=== PATIENT | female | born 1945 | race American Indian/Alaskan Native ===

== ENCOUNTER 2016-10-31 11:53 | Outpatient (CLI) | payer MEDICARE ==
--- NOTE | 2016-10-31 12:37 | Mammography Report ---
Screening mammogram: Routine views demonstrate a generally fatty replaced pattern bilaterally. As a biopsy marker in the upper outer left breast. The findings are not otherwise remarkable. CAD used. Impression: Benign pattern. Recommendation: Angle mammogram followup. BI-RADS CATEGORY: 1 = Negative ACR BI-RADS MAMMOGRAPHIC CODES: 0 = Needs additional imaging evaluation; 1 = Negative; 2 = Benign; 3 = Probably benign; 4 = Suspicious; 5 = Malignant; 6 = Known biopsy-proven malignancy COMMENT: 1. Dense breast tissue, i.e., adenosis, fibrocystic changes, etc., may obscure an underlying neoplasm. 2. Approximately 10% of cancers are not detected with mammography. 3. A negative mammography report should not delay biopsy if a clinically suspicious mass is present.
== END 2016-10-31 11:54 | disposition home or self-care (01) ==
LOC: MAMMO 11:53
PROVIDERS: ATTEND Family Medicine
DX: Z12.31 Encounter for screening mammogram for malignant neoplasm of breast (principal)
CPT/HCPCS: 77067; G0202

== ENCOUNTER 2020-09-19 23:40 | Emergency (ER) | payer MEDICARE ==
[2020-09-20 01:58] LABS: Basophils % (Auto) 0.5 % (0.0-1.8); Eosinophils % (Auto) 0.4 % (0.0-4.3); Hematocrit 45.8 % (30.3-42.9); Hemoglobin 15.6 gm/dl (10.1-14.3); Lymphocytes # (Auto) 1.4 K/mm3 (1.2-5.4); Lymphocytes % (Auto) 21.1 % (13.4-35.0); Mean Corpuscular HGB Conc 34 % (30-34); Mean Corpuscular Volume 100 fl (79-97); Monocytes # (Auto) 0.4 K/mm3 (0.0-0.8); Monocytes % (Auto) 5.5 % (0.0-7.3); Platelet Count 228 K/mm3 (140-440); Red Blood Count 4.58 M/mm3 (3.65-5.03); Red Cell Distribution Width 13.3 % (13.2-15.2)
[2020-09-20 02:22] LABS: Alanine Aminotransferase 16 units/L (7-56); Albumin 4.5 g/dL (3.9-5); Blood Urea Nitrogen 8 mg/dL (7-17); Calcium 9.9 mg/dL (8.4-10.2); Hemolysis Index 9
[2020-09-20 02:41] LABS: BUN/Creatinine Ratio 11
--- NOTE | 2020-09-20 02:56 | Cat Scan Report ---
CT head/brain wo con INDICATION: RIGHT eye swelling, Status-Post ground level fall. TECHNIQUE: Routine CT head without contrast. All CT scans at this location are performed using CT dos e reduction for ALARA by means of automated exposure control. COMPARISON: CT head 07/21/2015 FINDINGS: BRAIN / INTRACRANIAL CONTENTS: No acute hemorrhage, mass effect, midline shift, or hydrocephalus. No appreciable acute large territorial or lacunar infarct. No chronic infarct. Age-commensurate ventricu lar and cisternal/sulcal prominence. Moderate chronic microvascular ischemic change, slightly more pr ominent compared with prior CT. ORBITS: Mild right periorbital soft tissue swelling. There appears to be mild bilateral proptosis, th ough this is similar in appearance to prior CT. The globe and intraconal contents otherwise appear un remarkable. SINUSES / MASTOIDS: Partial left mastoid effusion. Otherwise, no significant abnormality of visualize d sinuses and mastoid air cells. ADDITIONAL FINDINGS: None. IMPRESSION: 1. Mild right periorbital soft tissue swelling. There appears to be mild bilateral proptosis which is similar in appearance to prior CT in 2014, suggesting a long-standing process. Otherwise, the globe and intraconal contents appear unremarkable. 2. No acute intracranial abnormality identified. Chronic changes as above. Signer Name: Margaret Boston MD Signed: 09/20/2020 2:51 AM Workstation Name: [id number]
--- NOTE | 2020-09-20 09:56 | Emergency Department Report ---
ED Head Trauma HPI - General Chief complaint: Fall Stated complaint: ETOH Time Seen by Provider: 09/20/20 09:37 Source: patient Mode of arrival: Ambulatory Limitations: No Limitations - History of Present Illness Initial comments: 74-year-old female presents to ED following fall. Patient reports she was drinking with family members and sustained a fall. Triage report notes that family reported there was some shaking activity when she fell. Patient reports that she had 4 of the small, individual bottles of wine. Patient has a black eye on the right side. She reports generalized body pain. She denies taking any anticoagulants. MD Complaint: fall -: Last night Mechanism of Injury: unsure Location: face Loss of Consciousness: unsure Place: home Severity: moderate Provoking factors: none known Other Injuries: eye(s) Associated Symptoms: denies: nausea, vomiting, neck pain - Related Data Previous Rx's Medication Instructions Recorded Last Taken Type Ibuprofen [Motrin 800 MG tab] 800 mg PO Q8HR PRN #30 tablet 07/22/15 Unknown Rx Allergies/Adverse reactions: Allergies Allergy/AdvReac Type Severity Reaction Status Date / Time No Known Allergies Allergy Verified 07/21/15 20:34 ED Review of Systems ROS: Stated complaint: ETOH Other details as noted in HPI Comment: All other systems reviewed and negative Gastrointestinal: denies: nausea, vomiting Musculoskeletal: myalgia Neurological: headache ED Past Medical Hx - Past Medical History Previous Medical History?: Yes Hx Hypertension: Yes Hx CVA: No Hx Heart Attack/AMI: No Hx Congestive Heart Failure: No Hx Diabetes: Yes Hx Deep Vein Thrombosis: No Hx Pulmonary Embolism: No Hx GERD: Yes Hx Liver Disease: No Hx Renal Disease: No Hx Sickle Cell Disease: No Hx Arthritis: No Hx Headaches / Migraines: No Hx Seizures: No Hx Kidney Stones: No Hx Psychiatric Treatment: No Hx Asthma: No Hx COPD: No Hx Tuberculosis: No Hx Dementia: No Hx HIV: No Additional medical history: Hypercholesterolemia - Surgical History Hx Coronary Stent: No Hx Open Heart Surgery: No Hx Pacemaker: No Hx Internal Defibrillator: No Hx Cholecystectomy: No Hx Appendectomy: No Hx Breast Surgery: No Additional Surgical History: thyroidectomy,fibroids, bilateral eye surgery - Social History Smoking Status: Current Every Day Smoker Substance Use Type: Alcohol - Medications Home Medications: Home Medications Medication Instructions Recorded Confirmed Last Taken Type Ibuprofen [Motrin 800 MG tab] 800 mg PO Q8HR PRN #30 tablet 07/22/15 Unknown Rx ED Physical Exam - General Limitations: No Limitations General appearance: alert, in no apparent distress - Head Head exam: Present: atraumatic, normocephalic - Eye Eye exam: Present: PERRL, EOMI, other (Periorbital bruising on the right side; subtle conjunctival hemorrhage present to the right eye) Pupils: Present: normal accommodation - ENT ENT exam: Present: mucous membranes moist - Neck Neck exam: Present: normal inspection, full ROM. Absent: meningismus - Respiratory Respiratory exam: Present: normal lung sounds bilaterally. Absent: respiratory distress - Cardiovascular Cardiovascular Exam: Present: regular rate, normal rhythm - GI/Abdominal GI/Abdominal exam: Present: soft. Absent: distended, tenderness - Extremities Exam Extremities exam: Present: normal inspection. Absent: tenderness - Back Exam Back exam: Present: normal inspection. Absent: vertebral tenderness - Neurological Exam Neurological exam: Present: alert, oriented X3, CN II-XII intact. Absent: motor sensory deficit - Psychiatric Psychiatric exam: Present: normal affect, normal mood - Skin Skin exam: Present: warm, dry, intact, normal color ED Course Vital Signs 09/19/20 09/20/20 09/20/20 23:59 07:31 07:46 Temperature 97.5 F L Pulse Rate 80 Respiratory 18 Rate Blood Pressure 135/92 155/87 159/93 Blood Pressure [Left] O2 Sat by Pulse 95 94 99 Oximetry 09/20/20 09/20/20 09/20/20 08:16 08:30 09:55 Temperature Pulse Rate 46 L Respiratory 18 Rate Blood Pressure 149/81 155/87 Blood Pressure 162/78 [Left] O2 Sat by Pulse 99 100 98 Oximetry 09/20/20 10:29 Temperature Pulse Rate 83 Respiratory 18 Rate Blood Pressure Blood Pressure 153/81 [Left] O2 Sat by Pulse 100 Oximetry - Lab Data Result diagrams: 09/20/20 01:35 09/20/20 01:35 Lab Results 09/20/20 09/20/20 09/20/20 Range/Units 01:35 01:35 01:35 WBC 6.7 (4.5-11.0) K/mm3 RBC 4.58 (3.65-5.03) M/mm3 Hgb 15.6 H (10.1-14.3) gm/dl Hct 45.8 H (30.3-42.9) % MCV 100 H (79-97) fl MCH 34 H (28-32) pg MCHC 34 (30-34) % RDW 13.3 (13.2-15.2) % Plt Count 228 (140-440) K/mm3 Lymph % (Auto) 21.1 (13.4-35.0) % [place] % (Auto) 5.5 (0.0-7.3) % Eos % (Auto) 0.4 (0.0-4.3) % Baso % (Auto) 0.5 (0.0-1.8) % Lymph # (Auto) 1.4 (1.2-5.4) K/mm3 [place] # (Auto) 0.4 (0.0-0.8) K/mm3 Eos # (Auto) 0.0 (0.0-0.4) K/mm3 Baso # (Auto) 0.0 (0.0-0.1) K/mm3 Seg Neutrophils % 72.5 H (40.0-70.0) % Seg Neutrophils # 4.8 (1.8-7.7) K/mm3 Sodium 140 (137-145) mmol/L Potassium 4.0 (3.6-5.0) mmol/L Chloride 101.2 (98-107) mmol/L Carbon Dioxide 25 (22-30) mmol/L Anion Gap 18 mmol/L BUN 8 (7-17) mg/dL Creatinine 0.7 (0.6-1.2) mg/dL Estimated GFR > 60 ml/min BUN/Creatinine Ratio 11 % Glucose 137 H (65-100) mg/dL Calcium 9.9 (8.4-10.2) mg/dL Total Bilirubin 0.30 (0.1-1.2) mg/dL AST 16 (5-40) units/L ALT 16 (7-56) units/L Alkaline Phosphatase 75 (35-129) units/L Total Protein 7.5 (6.3-8.2) g/dL Albumin 4.5 (3.9-5) g/dL Albumin/Globulin Ratio 1.5 % Plasma/Serum Alcohol 0.19 H (0-0.07) % - Radiology Data Radiology results: report reviewed, image reviewed - Medical Decision Making 74-year-old female, arrived to ER approximately 9 to 10 hours ago following fall at home. Patient admits to drinking several glasses of wine. EtOH level of 190 when it was drawn 9 hours ago. Patient is currently awake, alert, with appropriate responses to questioning. She does not appear to be intoxicated at this time. CT head was negative for any acute findings. Labs are unremarkable. Vitals are stable. Patient is okay for discharge at this time. She will be calling her granddaughter to pick her up from the ER. Return precautions given. Outpatient follow-up advised. - Differential Diagnosis Intoxication, intracranial bleed, contusion Critical care attestation.: If time is entered above; I have spent that time in minutes in the direct care of this critically ill patient, excluding procedure time. ED Disposition Clinical Impression: Fall, Contusion of face, Subconjunctival hemorrhage, Alcohol intoxication Disposition: DC- TO HOME OR SELFCARE Is pt being admited?: No Condition: Stable Instructions: Facial or Scalp Contusion, [id number], Subconjunctival Hemorrhage Referrals: [facility] [Provider Group] - 3-5 Days PRIMARY CARE, [Primary Care Provider] - 3-5 Days DAVID BLACK MD [Staff Physician] - as needed Time of Disposition: 10:03
[2020-09-20] MEDS ORDERED: ACETAMINOPHEN 325 MG TAB ONE (10:18)
[2020-09-20 10:30] VITALS: BP 153/81
[2020-09-20] MEDS ORDERED: ACETAMINOPHEN 325 MG TAB PO ONE (10:30)
== END 2020-09-20 10:42 | disposition home or self-care (01) ==
LOC: ED 23:40
DX: S00.83XA Contusion of other part of head, initial encounter (principal); H11.31 Conjunctival hemorrhage, right eye; F10.129 Alcohol abuse with intoxication, unspecified; I10 Essential (primary) hypertension; E11.9 Type 2 diabetes mellitus without complications; K21.9 Gastro-esophageal reflux disease without esophagitis; Z98.890 Other specified postprocedural states; F17.200 Nicotine dependence, unspecified, uncomplicated; Z79.899 Other long term (current) drug therapy; W18.30XA Fall on same level, unspecified, initial encounter; Y93.89 Activity, other specified; Y92.89 Other specified places as the place of occurrence of the external cause; Y99.8 Other external cause status
CPT/HCPCS: 36415; 70450; 80053; 80320; 85025; G0480